=== PATIENT | female | born 1950 | race Caucasian/White ===

== ENCOUNTER → 2017-12-23 | Outpatient (CLI) | payer MEDICARE ==
--- NOTE | 2017-12-23 16:14 | CONS ---
CONSULTATION DATE OF SERVICE: 12/23/2017 67-year-old lady who has been evaluated in [facility] for obstructive sleep apnea- hypopnea syndrome. HISTORY OF PRESENT ILLNESS/SLEEP-WAKE EVALUATION: Patient has been diagnosed with obstructive sleep apnea-hypopnea syndrome in 2016 in [facility] in [place]. At that time, sleep study showed apnea-hypopnea index 66.8, which was on control with CPAP at 10-11 cm of water. Since that time, patient is on treatment with CPAP and she is using CPAP equipment every night for the whole night without problems. No snoring with CPAP. Her sleep schedule usually from 10:30 p.m. until 7:00 a.m. No problems with falling asleep, although he has a TV set in bedroom. She still wakes up from sleep about 3 times with nocturia. In the morning, sometimes she wakes up tired. Sometimes problems with memory. [place] Sleepiness Scale is borderline 10. I checked the patient's CPAP unit. CPAP pressure is 11 cm of water. Usage is 100% of the time more than 4 hours. Average usage is 7.6 hours. Leak is 12 L/minute, which is borderline. Apnea-hypopnea index reading from the machine only 0.5, which is perfect. PAST MEDICAL HISTORY: Positive for diabetes mellitus. PAST SURGICAL HISTORY: Surgery for ganglion cyst on both hands, tubal ligation, total hysterectomy, bladder suspension, rectus sella repair, surgery for hiatal hernia and scleral therapy for some venous problems of the legs. MEDICATIONS: Metformin, atorvastatin, fish oil, calcium, niacin. SOCIAL HISTORY: Positive for smoking for a long time ago for about 10 years, half pack a day, quit about 30 years ago. Alcohol consumption rarely. FAMILY HISTORY: Hypertension, heart problems, hyperlipidemia, stroke, arthritis, lung problems, emphysema, sleep apnea, pneumonia, headaches, cancer, insomnia, acid reflux, ulcers, diabetes thyroid problem, during sleep, restless legs, sleepiness. REVIEW OF SYSTEMS: Basically negative. Occasional daytime sleepiness. PHYSICAL EXAM: GENERAL lady without distress. VITAL SIGNS BP 114/83, HR 78, RR 16, height 5 feet 3-1/2, weight 220, BMI 38.3, temperature 98.9, oxygen saturation room air 93%. HEENT PERRLA, EOMI, evaluation of oropharynx showed extremely low position of soft palate. Neck 15 inches in circumference. NECK Supple, no JVD. Thyroid is not palpable. LUNGS Clear to percussion and to auscultation. Good air exchange. No wheezing or rhonchi. HEART S1, S2 regular. No murmurs, gallops, or rubs. ABDOMEN Obese. Soft and nontender. Bowel sounds are present. No organomegaly appreciated. EXTREMITIES No clubbing or cyanosis. TOBACCO CONDITIONER Awake, alert, and oriented X3. Cranial nerves 2 to 7 intact. There is no fasciculation or atrophy. noted. No focal deficits observed. IMPRESSION: 1. Severe obstructive sleep apnea-hypopnea syndrome; apnea-hypopnea index 66.8 by results of sleep study in different institution on control with CPAP at 11 cm of water. Patient demonstrated 100% compliance with treatment benefitting from treatment. 2. Obesity. 3. Diabetes mellitus. 4. Status post bilateral surgery for ganglion cyst of the hands. 5. Status post breast resection for benign tumor. 6. Status post tubal ligation. 7. Status post total hysterectomy. 8. Status post bladder suspension. 9. Status post rectus sella treatment. 10.Acid reflux. 11.Status post surgical treatment of hiatal hernia. 12.Status post surgery for varicose veins of the lower legs. PLAN: 1. Patient will continue to use CPAP equipment every night for the whole night with the same pressure of 11 cm of water. 2. Prescription for all necessary CPAP supplies including heated tube, full-face mask, filters, humidifier. 3. Losing weight. 4. Sleep hygiene with regular time in bed for at least 8 hours. 5. No driving if feeling any sleepiness. Thank you very much for referring this patient for consultation. Sincerely, Magan Ramos MD, PhD, FAASM Diplomat of [employer] Campaign Specialist of [facility] [place] MMODL / IJN: [id number] /
== END | disposition home or self-care (01) ==
LOC: SLEEP 13:15
PROVIDERS: ATTEND Internal Medicine
DX: G47.33 Obstructive sleep apnea (adult) (pediatric) (principal); E11.9 Type 2 diabetes mellitus without complications; K21.9 Gastro-esophageal reflux disease without esophagitis; E66.9 Obesity, unspecified; Z68.38 Body mass index [BMI] 38.0-38.9, adult; Z87.891 Personal history of nicotine dependence; Z79.84 Long term (current) use of oral hypoglycemic drugs; Z99.89 Dependence on other enabling machines and devices; Z98.890 Other specified postprocedural states; Z90.710 Acquired absence of both cervix and uterus
CPT/HCPCS: 99211

== ENCOUNTER → 2018-02-04 | Outpatient (CLI) | payer MEDICARE ==
--- NOTE | 2018-02-05 15:09 | MM ---
Reason for exam: screening (asymptomatic). Last mammogram was performed 1 year and 2 months ago. History: Patient is postmenopausal. Family history of breast cancer in maternal aunt and breast cancer in maternal cousin. Benign excisional biopsy of the right breast, 1987. Physical Findings: A clinical breast exam by your physician is recommended on an annual basis and results should be correlated with mammographic findings. MG 3D Screening Mammo W/Cad Bilateral CC and MLO view(s) were taken. Prior study comparison: December 17, 2016, mammogram. February 19, 2016, mammogram. Focal asymmetry right upper outer quadrant, stable. No significant changes when compared with prior studies. ASSESSMENT: Benign, BI-RAD 2 RECOMMENDATION: Routine screening mammogram of both breasts in 1 year.
== END | disposition home or self-care (01) ==
LOC: RADMAMWWP 08:48
PROVIDERS: ATTEND Family Medicine
DX: Z12.31 Encounter for screening mammogram for malignant neoplasm of breast (principal)
CPT/HCPCS: 77063; 77067

== ENCOUNTER → 2018-10-21 | Outpatient (CLI) | payer MEDICARE ==
--- NOTE | 2018-10-21 14:27 | XR ---
EXAMINATION TYPE: XR cervical spine comp DATE OF EXAM: 10/21/2018 COMPARISON: None HISTORY: Degenerative joint disease, spinal canal stenosis TECHNIQUE: 5 view cervical spine supplemented with a transthoracic swimmer's view FINDINGS: Odontoid is limited due to overlying occiput. Vertebral body alignment is normal. There is disc space narrowing present C5-6 C6-7. Prevertebral space is normal. Posterior spinal lamellar line is intact. There is mild bilateral foraminal stenosis at C5-6. Remaining foramen are patent. IMPRESSION: 1. Mild foraminal narrowing and degenerative disc changes C5-6. 2. Some mild disc space narrowing is also present C6-7.
--- NOTE | 2018-10-21 14:28 | XR ---
EXAMINATION TYPE: XR lumbosacral spine min 4V DATE OF EXAM: 10/21/2018 COMPARISON: None HISTORY: Degenerative joint disease, spinal canal stenosis TECHNIQUE: Five-view lumbar spine FINDINGS: There 5 lumbar-type vertebral bodies. Pedicles are intact. Minimal rotoscoliosis within the lumbar spine. Facet degenerative changes are present bilaterally greater in the L3-4 through L5-S1 l evels. Disc space narrowing is present. Vertebral body heights are preserved. Schmorl's node may be p resent in the superior L2 vertebral level. No posterior wall displacement is evident. IMPRESSION: 1. No acute osseous abnormality. 2. Degenerative facet changes lower lumbar spine
== END | disposition home or self-care (01) ==
LOC: RADXRMAIN 13:48
PROVIDERS: ATTEND Chiropractor
DX: M99.71 Connective tissue and disc stenosis of intervertebral foramina of cervical region (principal); M48.02 Spinal stenosis, cervical region; M47.812 Spondylosis without myelopathy or radiculopathy, cervical region; M47.816 Spondylosis without myelopathy or radiculopathy, lumbar region
CPT/HCPCS: 72050; 72110

== ENCOUNTER → 2018-11-30 | Outpatient (CLI) | payer MEDICARE, OTHER ==
--- NOTE | 2018-11-30 13:44 | MR ---
EXAMINATION TYPE: MR brain and iac wo/w con DATE OF EXAM: 11/30/2018 COMPARISON: NONE HISTORY: Tinnitus / Rt Hearing loss TECHNIQUE: Multiplanar, multisequence images of the brain and brainstem is performed without and with IV contras t, utilizing 9 mL intravenous Gadavist . FINDINGS: Diffusion weighted images demonstrate no evidence of a recent infarct or other diffusion ab normality. There is no extra-axial fluid collection. Few scattered foci of T2/FLAIR hyperintensity a re seen within the periventricular and subcortical white matter with the largest in the left centrum semiovale of the frontal lobe measuring 0.7 x 0.4 cm. The ventricular system and cisternal spaces are normal in size and appearance. The brain volume is age appropriate. Incidentally noted 4 mm pineal gland cyst. Remaining midline structures demonstrate normal morphology . The craniocervical junction appears within normal limits. Post contrast images demonstrate no abn ormal enhancement. The dural venous sinuses appear patent. Mild mucosal thickening is seen within the ethmoid sinuses. The remaining visualized sinuses are clear and the globes are intact. There is no evidence of cerebellar pontine angle mass nor aneurysmal dilatation of the vertebral basi lar system. The 7th and 8th cranial nerves demonstrate no abnormal enhancement. No evidence of acoust ic schwannoma. IMPRESSION: 1. No evidence of abnormal enhancement of the 7th or 8th cranial nerves, no cerebellar pontine angle mass, and no evidence of acoustic for melanoma. No middle ear cavity fluid and no evidence of mastoid itis in this patient with right-sided hearing loss. 2. Mild burden nonspecific white matter change, most commonly on the basis of chronic microangiopathy . 3. No evidence of acute territorial infarct, midline shift or mass effect. No abnormal intracranial e nhancement.
== END | disposition home or self-care (01) ==
LOC: RADMRIMAIN 10:28
PROVIDERS: ATTEND Nurse Practitioner Family
DX: I73.9 Peripheral vascular disease, unspecified (principal); R90.82 White matter disease, unspecified; H91.90 Unspecified hearing loss, unspecified ear
CPT/HCPCS: 70553; A9585

== ENCOUNTER → 2018-12-09 | Outpatient (CLI) | payer MEDICARE ==
--- NOTE | 2018-12-09 11:51 | SFUN ---
SLEEP CENTER FOLLOW UP NOTE DATE OF SERVICE: 12/09/2018 This 68-year-old lady had been followed in the sleep center for treatment of severe obstructive sleep apnea-hypopnea syndrome. Patient continued to use her CPAP equipment every night for the whole night without significant problems related to mask fitting, pressure or humidification. She is receiving her CPAP supplies on time. No sleepiness during the day. [place] Sleepiness Scale today is 5. I checked her CPAP unit. CPAP pressure is 11 cm of water. Usage is every night. For the one year, she used it 363 nights out of 365 nights and 356 nights more than 4 hours with average usage of 7.5 hours per night. Apnea-hypopnea index for the whole year only 0.5, which is absolutely perfect. Leak for the whole year 11 L/minute, which is acceptable range. MEDICATIONS: Metformin, atorvastatin. PHYSICAL EXAMINATION: During physical exam, patient in no distress. VITAL SIGNS: BP 152/82, HR 96, RR 16, height 5 feet 3 inches, weight 214, body mass index 37.9, temperature 98.1, oxygen saturation in room air 96%. HEENT: PERRLA, EOMI. Oropharynx extremely low position of soft palate. Mallampati 4. NECK: Supple, no JVD. Thyroid is not palpable. LUNGS: Clear to percussion and to auscultation. Good air exchange. No wheezing or rhonchi. HEART: S1, S2 regular. No murmurs, gallops, or rubs. ABDOMEN: Slightly obese. EXTREMITIES: No clubbing or cyanosis. STRAIGHTEDGE MAN: Awake, alert, and oriented X3. Cranial nerves 2 to 7 intact. There is no fasciculation or atrophy. noted. No focal deficits observed. IMPRESSION: 1. Severe obstructive sleep apnea-hypopnea syndrome on full control with CPAP at 11 cm of water. Patient demonstrated practically 100% compliance with treatment benefitting from treatment. 2. Diabetes mellitus. 3. Obesity. Weight is 6 pounds down comparing with weight one year ago. 4. Status post bilateral surgery for ganglion cyst of the hands. 5. Status post breast resection for benign tumor. 6. Status post tubal ligation. 7. Status post total hysterectomy. 8. Status post bladder suspension. 9. Status post surgical treatment for hiatal hernia. 10.Acid reflux. 11.Status post surgery for varicose veins of the lower legs. 12.Status post surgery for esophageal sphincter for prevention of acid reflux. PLAN: 1. Patient will continue to use CPAP equipment every night for the whole night. 2. Prescription for all necessary CPAP supplies. 3. Continue losing weight. 4. Sleep hygiene with regular time in bed for 8 hours. 5. Precautions related to driving. No driving if feeling any sleepiness. Thank you very much for allowing me to participate in management of your patient. Sincerely, Magan Ramos MD, PhD, FAASM Diplomat of [employer] Thread Grinder Tool of [facility] [place] MMODL / IJN: [id number] /
== END | disposition home or self-care (01) ==
LOC: SLEEP 10:20
PROVIDERS: ATTEND Internal Medicine
DX: G47.33 Obstructive sleep apnea (adult) (pediatric) (principal); E11.9 Type 2 diabetes mellitus without complications; E66.9 Obesity, unspecified; K21.9 Gastro-esophageal reflux disease without esophagitis; Z68.37 Body mass index [BMI] 37.0-37.9, adult; Z98.51 Tubal ligation status; Z90.710 Acquired absence of both cervix and uterus; Z98.890 Other specified postprocedural states; Z99.89 Dependence on other enabling machines and devices; Z79.84 Long term (current) use of oral hypoglycemic drugs; Z79.899 Other long term (current) drug therapy

== ENCOUNTER → 2019-02-08 | Outpatient (CLI) | payer MEDICARE, OTHER ==
--- NOTE | 2019-02-10 10:03 | MM ---
Reason for exam: screening (asymptomatic). Last mammogram was performed 1 year ago. History: Patient is postmenopausal. Family history of breast cancer in maternal aunt and breast cancer in maternal cousin. Benign excisional biopsy of the right breast, 1987. Physical Findings: A clinical breast exam by your physician is recommended on an annual basis and results should be correlated with mammographic findings. MG 3D Screening Mammo W/Cad Bilateral CC and MLO view(s) were taken. Prior study comparison: February 04, 2018, bilateral MG 3d screening mammo w/cad. December 17, 2016, mammogram. The breast tissue is heterogeneously dense. This may lower the sensitivity of mammography. There is no discrete abnormality. No significant changes when compared with prior studies. ASSESSMENT: Negative, BI-RAD 1 RECOMMENDATION: Routine screening mammogram of both breasts in 1 year.
== END | disposition home or self-care (01) ==
LOC: RADMAMWWP 09:18
PROVIDERS: ATTEND Family Medicine
DX: Z12.31 Encounter for screening mammogram for malignant neoplasm of breast (principal)
CPT/HCPCS: 77063; 77067

== ENCOUNTER → 2019-10-26 | Outpatient (CLI) | payer MEDICARE, OTHER ==
--- NOTE | 2019-10-26 15:16 | MR ---
EXAMINATION TYPE: MR knee LT wo con DATE OF EXAM: 10/26/2019 COMPARISON: NONE HISTORY: Left knee pain with locking and swelling for 4 weeks after fall injury per patient. TECHNIQUE: Multiplanar, multisequence images of the knee is performed without IV contrast. FINDINGS: MEDIAL MENISCUS: Anterior horn is intact without tear. Posterior horn is truncated with abnormal incr eased signal superior aspect extending to articular surface. LATERAL MENISCUS: Anterior and posterior horns are intact without tear. CRUCIATE LIGAMENTS: The anterior and posterior cruciate ligaments are intact and unremarkable. COLLATERAL LIGAMENTS: The medial collateral ligament and lateral collateral ligament complex are inta ct. Mild fluid signal surrounds medial collateral ligament fibers EXTENSOR MECHANISM: Visualized quadriceps and patellar tendons are intact. EFFUSION: Small to tiny suprapatellar joint effusion. POPLITEAL CYST: Tiny popliteal/garner cyst. TRICOMPARTMENT SPACES: Moderate tricompartment joint space loss with mild spurring, relative sparing of lateral tibiofemoral compartment. CARTILAGE: Chondromalacia patella with thinning of articular cartilage along the posterior patellar p ole. Less prominent cartilaginous loss medial tibial femoral compartment. BONE MARROW SIGNAL: Extensive heterogeneous diminished T1 and increased T2 signal involving the dista l femoral condyle extending into the metaphysis with curvilinear low T1 signal at the subchondral mick face. OTHER: No additional significant abnormality is appreciated. IMPRESSION: 1. Subchondral injury with significant adjacent osseous contusion and/or bone marrow edema involving the distal femoral meta-epiphysis. 2. Full-thickness tear posterior horn medial meniscus. 3. Mild MCL sprain injury. 4. Moderate tricompartment degenerative changes greatest fell from a compartment as detailed above. 5. Small to tiny suprapatellar joint effusion. 6. Tiny popliteal cyst. 7. Likely tearing of the medial retinaculum without patellar dislocation.
--- NOTE | 2019-10-26 21:54 | MR ---
EXAMINATION TYPE: MR hip LT wo con DATE OF EXAM: 10/26/2019 COMPARISON: None. HISTORY: Left hip pain x 4 weeks Standard multiplanar, multisequence MRI departmental protocol Multiplanar, multisequence images of the pelvis focusing on left hip were acquired. FINDINGS: There is sxbr-nl-[id number] axial joint space loss in both hips with mild acetabular spurring . Findings symmetric in appearance. Small to tiny symmetric bilateral hip joint effusions are present . Femoral head shapes are maintained bilaterally. No suspicious edema is seen. No serpiginous low T1 signal identified to suggest avascular necrosis. No suspicious groin hernia or adenopathy. Muscle bulk bilateral thigh symmetric and felt within jaime l limits. No suspicious increased fluid signal of the greater trochanters bilaterally. Bladder poorly distended. Uterus surgically absent or markedly atrophic. No suspicious bowel dilatati on. No concerning pelvic fluid collection. IMPRESSION: [id number] degenerative changes in the left hip as detailed above
== END | disposition home or self-care (01) ==
LOC: RADMRIMAIN 13:57
PROVIDERS: ATTEND Family Medicine
DX: S83.242A Other tear of medial meniscus, current injury, left knee, initial encounter (principal); M17.12 Unilateral primary osteoarthritis, left knee; S83.8X2A Sprain of other specified parts of left knee, initial encounter; M25.462 Effusion, left knee; M71.22 Synovial cyst of popliteal space [Baker], left knee; M25.552 Pain in left hip; M16.12 Unilateral primary osteoarthritis, left hip

== ENCOUNTER → 2019-11-28 | Outpatient (CLI) | payer MEDICARE, OTHER ==
[2019-11-28 15:26] LABS: Basophils # (A) 0.1 k/uL (0-0.2); Basophils % (A) 1 %; Eosinophils # (A) 0.2 k/uL (0-0.7); Eosinophils % (A) 2 %; HCT 45.1 % (34.0-46.0); HGB 14.8 gm/dL (11.4-16.0); Lymphocytes # (A) 4.7 k/uL (1.0-4.8); Lymphocytes % (A) 52 %; MCH 31.7 pg (25.0-35.0); MCHC 32.9 g/dL (31.0-37.0); MCV 96.4 fL (80.0-100.0); Mean Platelet Volume 8.6; Monocytes # (A) 0.4 k/uL (0-1.0); Monocytes % (A) 5 %; Neutrophils # (A) 3.5 k/uL (1.3-7.7); Neutrophils % (A) 38 %; Platelet Count 250 k/uL (150-450); RBC 4.68 m/uL (3.80-5.40); RDW 12.6 % (11.5-15.5); WBC 9.1 k/uL (3.8-10.6)
[2019-11-28 16:09] LABS: Potassium 4.1 mmol/L (3.5-5.1)
== END | disposition home or self-care (01) ==
LOC: LABPAT 13:27
PROVIDERS: ATTEND Orthopaedic Surgery
DX: Z01.818 Encounter for other preprocedural examination (principal); M23.92 Unspecified internal derangement of left knee
CPT/HCPCS: 36415; 80051; 85025; 93005

== ENCOUNTER 2019-12-07 08:36 | Day surgery (SDC) | payer MEDICARE, OTHER ==
[2019-12-05 08:48] VITALS: BMI 31.9
--- NOTE | 2019-12-06 18:02 | HP ---
HISTORY AND PHYSICAL DATE OF SURGERY: 12/07/2019 Adelina Gordillo is a 69-year-old patient seen with progressive left knee pain. We discussed options for treatment. She elected to proceed with arthroscopy. Consent was obtained. PAST MEDICAL HISTORY: Hyperlipidemia, onn-kbmlyoe-grpmepkbk diabetes. PAST SURGICAL HISTORY: Total abdominal hysterectomy, cataract surgery. DAILY MEDICATIONS: Atorvastatin, Januvia, metformin. ALLERGIES: NONE. SOCIAL HISTORY: She denies current tobacco use. PHYSICAL EVALUATION OF THE LEFT KNEE: Her range of motion is negative 2/3 to 120. Mild effusion. Tenderness medial joint line. Positive medial Jessie's. Ligaments are stable. Hip rotation is without pain. Her distal neurovascular exam is intact. RADIOGRAPHS: Left knee radiographs revealed osteoarthritic changes, mild. Left knee MRI: Medial meniscal tear. IMPRESSION: 1. Internal derangement of the left knee with medial meniscal tear. 2. Hyperlipidemia. 3. Zty-zoinisf-tpdaxehlb diabetes. PLAN: Left knee arthroscopy with partial meniscectomy, partial synovectomy and debridement. MMODL / IJN: [id number] /
[~2019-12-07 08:36] MED LIST: DEXAMETHASONE SOD PHOSPHATE 10 MG/ML 1 ML VIAL IV ONE; HYDROmorphone 0.5 MG/0.5 ML SYRINGE IVP PRN; LACTATED RINGERS 1,000 ML IV SCH; MIDAZOLAM 2 MG/2 ML VIAL IV PRN; ONDANSETRON 4 MG/2 ML VIAL IVP ONE
[2019-12-07] MEDS ORDERED: ONDANSETRON 4 MG/2 ML VIAL ONE (08:58)
[2019-12-07 09:24] LABS: Glucose,Whole Blood 182 mg/dL (75-99)
[2019-12-07] MEDS ORDERED: MIDAZOLAM 2 MG/2 ML VIAL ONE (09:58)
[2019-12-07] MEDS ORDERED: fentaNYL (PF) 50 MCG/ML 2 ML AMP ONE (09:58)
[2019-12-07] MEDS ORDERED: LIDOCAINE 1% INJ 10MG/ML (20 ML MDV) ONE (09:58)
[2019-12-07] MEDS ORDERED: SUCCINYLCHOLINE CHLORIDE 100 MG/5 ML SYR IV ONE (09:58)
[2019-12-07] MEDS ORDERED: PROPOFOL 10 MG/ML 20 ML VIAL IV ONE (09:58)
[2019-12-07] MEDS ORDERED: BUPIVACAINE (PF) 0.25% 30 ML VIAL SQ ONE (10:22)
--- NOTE | 2019-12-07 11:00 | P.OP ---
Date of Procedure: 12/07/19 Preoperative Diagnosis: Internal derangement left knee Postoperative Diagnosis: 1. Tear medial meniscus left knee 2. Grade 2/3 chondromalacia medial femoral condyle left knee 3. Grade 2/3 chondromalacia patella left knee 4. Medial plica left knee 5. Reactive synovitis medial, lateral and suprapatellar compartments left knee Procedure(s) Performed: 1. Arthroscopic partial medial meniscectomy left knee 2. Arthroscopic chondroplasty medial femoral condyle left knee 3. Arthroscopic chondroplasty patella left knee 4. Arthroscopic resection medial plica left knee 5. Arthroscopic partial synovectomy medial, lateral and suprapatellar compartments left knee Anesthesia: NINAA, local Surgeon: Jourdan Orosco Estimated Blood Loss (ml): 8 Pathology: none sent Condition: stable Disposition: PACU Indications for Procedure: 69-year-old patient seen with progressive left knee pain. After having treatment options discussed, she elected to proceed with arthroscopy. Operative Findings: See description of procedure Description of Procedure: Patient was taken to the operative suite. Patient underwent a general anesthetic by the department of anesthesia. Patient was given preoperative antibiotics. The left lower extremity was placed in a well-padded arthroscopic leg peralta. The left leg was prepped and draped in the normal sterile orthopedic fashion. A lateral parapatellar and suprapatellar incision was made. Trochars were inserted. Arthroscopy was initiated. Suprapatellar pouch revealed diffuse thick reactive synovitis. The patellofemoral joint appeared to articulate congruently. There was grade 2/3 chondromalacia with some diffuse osteochondral flap tears. The scope was guided into the medial gutter. No loose bodies or plica were identified. The scope was then guided into the medial compartment. A medial parapatellar incision was made. Trocar inserted followed by probe. There was a complex tear posterior horn medial meniscus. There were grade 2/3 chondromalacia changes of the medial femoral condyle with diffuse osteochondral flap tears. There were grade 2/3 chondromalacia changes of the medial tibial plateau. There was thick reactive synovitis anteriorly. I performed a partial medial meniscectomy. I performed a chondroplasty of the medial femoral condyle. I performed a partial synovectomy. The residual meniscus was probed and found to be stable. The residual osteochondral surface was stable. There was good decompression of the synovitis. Scope and probe were then guided into the intercondylar notch. Cruciates were identified, probed and found to be stable. The scope and probe were then guided into lateral compartment. Lateral meniscus was probed and found to be stable since very mild superficial fraying. There were grade 1 chondromalacia changes lateral compartment. There were no osteochondral tears present. There was some reactive synovitis anteriorly. I introduced a motorized shaver and performed a partial synovectomy. There was good decompression of the synovitis. The scope was in guided back into the suprapatellar compartment. I introduced a motorized shaver into the super patellar compartment. I debrided some piecemeal fragments of meniscus I encountered. I performed a chondroplasty of the patella getting down to stable osteochondral tissue. I performed a partial synovectomy decompressing the reactive synovitis. The shaver was removed. There appeared be good decompression of synovitis. The residual osteochondral surface of patella. Stable. I took one more look around the entire knee, no residual debris. Instruments were now removed from the joint. The joint was infiltrated with .25% Marcaine. Steri-Strips were applied to the portal sites. Sterile dressings were applied. The patient was placed into a NATALIA hose. No tourniquet was utilized. The patient was awakened, transferred to a bed and taken to recovery stable satisfactory condition.
[2019-12-07 11:05] VITALS: TEMP 97.2
[2019-12-07] MEDS ORDERED: LACTATED RINGERS 1,000 ML IV ONE (11:18)
[2019-12-07 11:32] LABS: Glucose,Whole Blood 222 mg/dL (75-99)
[2019-12-07 12:12] VITALS: RESP 18
[2019-12-07 12:44] VITALS: BP 128/78; PULSE 90
== END 2019-12-07 12:45 | disposition home or self-care (01) ==
LOC: OR 08:36
PROVIDERS: ATTEND Orthopaedic Surgery
DX: S83.242A Other tear of medial meniscus, current injury, left knee, initial encounter (principal); X58.XXXA Exposure to other specified factors, initial encounter; M67.52 Plica syndrome, left knee; M22.42 Chondromalacia patellae, left knee; M65.862 Other synovitis and tenosynovitis, left lower leg; E78.5 Hyperlipidemia, unspecified; E11.9 Type 2 diabetes mellitus without complications; G47.33 Obstructive sleep apnea (adult) (pediatric); K21.9 Gastro-esophageal reflux disease without esophagitis; Z79.84 Long term (current) use of oral hypoglycemic drugs; Z79.899 Other long term (current) drug therapy
CPT/HCPCS: 29881; J2250; J1100; J0690; J2405; J2001; J3010; J0330; J2704; J1170

== ENCOUNTER → 2019-12-15 | Outpatient (CLI) | payer MEDICARE ==
--- NOTE | 2019-12-15 11:55 | SFUN ---
SLEEP CENTER FOLLOW UP NOTE DATE OF SERVICE: 12/15/2019 A 69-year-old lady who has been followed in the Sleep Center for treatment of obstructive sleep apnea-hypopnea syndrome. Patient successfully continues to use her CPAP equipment every night for the whole night. No snoring with the machine. [place] Sleepiness Scale today is 8. I checked her CPAP unit, CPAP pressure is 11 cm of water. Usage is 29/30 nights more than 4 hours with average usage 7.5 hours per night. Leak 8 L/minute which is acceptable range. Apnea-hypopnea index is only 1.1, which is normal. Patient using Air Wyatt F10 full-face mask. MEDICATIONS: Metformin, atorvastatin, Januvia. PHYSICAL EXAM: Patient in no distress. BP 152/73, HR 92, RR 15, height 5, 3, weight 203 pounds. Body mass index 35.9, temperature 98.2, oxygen saturation from 96%. OROPHARYNX: Extremely low position of soft palate. Mallampati 4. ABDOMEN: Slightly obese. NECK: Supple, no JVD. Thyroid is not palpable. LUNGS: Clear to percussion and to auscultation. Good air exchange. No wheezing or rhonchi. HEART: S1, S2 regular. No murmurs, gallops, or rubs. EXTREMITIES: No clubbing or cyanosis. CLOTHES SEPARATOR: Awake, alert, and oriented X3. Cranial nerves 2 to 7 intact. There is no fasciculation or atrophy. noted. No focal deficits observed. IMPRESSION: 1. Severe obstructive sleep apnea-hypopnea syndrome. Patient demonstrated great compliance with treatment, benefitting from treatment. 2. Increasing blood pressure today in the office. 3. Obesity, patient lost about 11 pounds since previous visit. 4. Status post recent left knee arthroscopic surgery for meniscus problems. 5. Diabetes mellitus. 6. Status post bilateral surgery for ganglion cyst of the . 7. Status post breast resection for benign tumor. 8. Status post tubal ligation. 9. Status post total hysterectomy. 10.Status post bladder suspension. 11.Status post surgical treatment for hiatal hernia. 12.Hyperlipidemia. 13.Acid reflux. 14.Status post surgical treatment of varicose veins of lower legs. 15.Status post surgery on oropharyngeal sphincter for prevention of acid reflux. PLAN: 1. Patient will continue to use PAP equipment every night for the whole night. 2. Sleep hygiene with regular time in bed for at least 7-1/2 to 8 hours. 3. Precautions related to driving. No driving if feeling sleepiness. 4. I will maintain all necessary prescription for PAP supplies including mask, tube, filters. 5. Watching weight. 6. No driving if feeling sleepiness. 7. Followup visit in 6 months or earlier if patient has any problems. Thank you very much for allowing me to participate in the management of your patient. Sincerely, Magan Ramos MD, PhD, FAASM Diplomat of [employer] Percussion Instrument Tuner of [facility] [place] MMODL / IJN: [id number] /
== END | disposition home or self-care (01) ==
LOC: SLEEP 10:20
PROVIDERS: ATTEND Internal Medicine
DX: G47.33 Obstructive sleep apnea (adult) (pediatric) (principal); E66.9 Obesity, unspecified; E11.9 Type 2 diabetes mellitus without complications; E78.5 Hyperlipidemia, unspecified; K21.9 Gastro-esophageal reflux disease without esophagitis; Z98.51 Tubal ligation status; Z90.710 Acquired absence of both cervix and uterus; Z99.89 Dependence on other enabling machines and devices; Z98.890 Other specified postprocedural states

== ENCOUNTER → 2020-03-28 | Outpatient (CLI) | payer MEDICARE, OTHER ==
--- NOTE | 2020-04-02 09:09 | MM ---
Reason for exam: screening (asymptomatic). Last mammogram was performed 1 year and 2 months ago. History: Patient is postmenopausal and has history of other cancer at age 69. Family history of breast cancer in maternal aunt and breast cancer in maternal cousin. Benign excisional biopsy of the right breast, 1987. Took hormonal contraceptives for 1 year. Physical Findings: A clinical breast exam by your physician is recommended on an annual basis and results should be correlated with mammographic findings. MG 3D Screening Mammo W/Cad Bilateral CC and MLO view(s) were taken. Prior study comparison: February 08, 2019, bilateral MG 3d screening mammo w/cad. February 04, 2018, bilateral MG 3d screening mammo w/cad. There are scattered fibroglandular densities. Finding: There is a 7 mm high density, circumscribed oval mass located 7 cm from the nipple in the 8 o'clock position of the right breast. New finding since February 08, 2019 and February 04, 2018. ASSESSMENT: Incomplete: need additional imaging evaluation, BI-RAD 0 RECOMMENDATION: Ultrasound of the right breast. [facility] will attempt to contact patient to return for ultrasound.
== END | disposition home or self-care (01) ==
LOC: RADMAMWWP 09:30
PROVIDERS: ATTEND Family Medicine
DX: Z12.31 Encounter for screening mammogram for malignant neoplasm of breast (principal)
CPT/HCPCS: 77063; 77067

== ENCOUNTER → 2020-04-03 | Outpatient (CLI) | payer MEDICARE, OTHER ==
--- NOTE | 2020-04-03 11:40 | USB ---
Reason for exam: additional evaluation requested from abnormal screening. History: Patient is postmenopausal and has history of other cancer at age 69. Family history of breast cancer in maternal aunt at age 40 and breast cancer in maternal cousin at age 50. Benign excisional biopsy of the right breast, 1987. Took hormonal contraceptives for 1 year. Physical Findings: Nurse did not find any significant physical abnormalities on exam. US Breast Workup Limited RT Right limited breast ultrasound including focal area of concern, retroareolar and axilla demonstrates a 0.3 x 0.2cm lesion too small to characterize at 8 o'clock. No corresponding ultrasound abnormality to mammogram. These results were verbally communicated with the patient and result sheet given to the patient on 04/03/20. ASSESSMENT: Benign, BI-RAD 2 RECOMMENDATION: Stereotactic core biopsy of the right breast. (right breast mammogram density) Called Dr. Polk's office with mammographic findings and has scheduled an appointment for the patient for 05/03/20 at 12:[address] Mullen. Biopsy scheduled for 04/23/20 at 8:00. PRELIMINARY REPORT CALLED AND FAXED TO DR. MULLEN ON 04/03/20.
== END | disposition home or self-care (01) ==
LOC: RADUSWWP 09:34
PROVIDERS: ATTEND Family Medicine
DX: R92.8 Other abnormal and inconclusive findings on diagnostic imaging of breast (principal)

== ENCOUNTER → 2020-04-23 | Day surgery (SDC) | payer MEDICARE, OTHER ==
[2020-04-23 07:14] VITALS: BP 115/82; PULSE 85; RESP 16; TEMP 99
--- NOTE | 2020-04-23 08:50 | MM ---
EXAMINATION TYPE: MG discontinued stereo core RT DATE OF EXAM: 04/23/2020 COMPARISON: 03/28/2020, 02/08/2019, and 02/04/2018. Ultrasound 04/03/2020 CLINICAL HISTORY: 69-year-old female referred for stereotactic core needle biopsy of right breast asy mmetric density TECHNIQUE: Initial mammographic workup of the lateral right breast asymmetric density with spot 3-D C C, 3-D CC rolled medial, and 3-D ML views. FINDINGS: The intended biopsy target, lateral asymmetric density on the right CC view does not clearly persist on additional views. No correlate is identified on the initial 3-D MLO or the current 3-D lateral vie ws. Six-month follow-up is recommended and biopsy is being deferred at this time. Findings and impres salvador are discussed with the patient. IMPRESSION: 1. Biopsy deferred as additional mammographic workup does not show a clear persisting targeted for bi opsy. 2. BI-RADS 3, probably benign RECOMMENDATION: 1. Six-month follow-up diagnostic right breast mammogram. 2. Six-month follow-up right breast ultrasound lateral half from 6:00 to 12:00. 3. Patient should continue monthly self breast exams. 4. This exam should not preclude additional follow-up of suspicious palpable abnormalities.
== END ==
LOC: RADMAMWWP 07:01
PROVIDERS: ATTEND Surgery
DX: R92.8 Other abnormal and inconclusive findings on diagnostic imaging of breast (principal); Z53.9 Procedure and treatment not carried out, unspecified reason; Z88.8 Allergy status to other drugs, medicaments and biological substances

== ENCOUNTER → 2020-06-14 | Outpatient (CLI) | payer MEDICARE ==
--- NOTE | 2020-06-14 16:23 | SFUN ---
SLEEP CENTER FOLLOW UP NOTE DATE OF SERVICE: 06/14/2020 This is a 69-year-old lady who has been followed in Sleep Center for treatment of obstructive sleep apnea-hypopnea syndrome. The patient continues to use her CPAP equipment every night. No snoring with the machine. No problems related to mask fitting, pressure or humidification. [place] Sleepiness Scale today is 8, which is normal. I checked her CPAP unit. Pressure is 11 cm of water. Usage is 30/30 nights which showed 100% compliance. Average usage 8.6 hours per night. The patient is using it every night more than 4 hours. Leak is 5 L/minute, which is normal. Apnea-hypopnea index is only 0.4, which is absolutely perfect. MEDICATIONS: Metformin 1000 mg once a day, atorvastatin 40 mg once a day, Januvia 100 mg once a day. PHYSICAL EXAMINATION: GENERAL: A pleasant patient in no distress. VITAL SIGNS: BP 135/73, HR 87, RR 12, height 5 feet 4 inches, weight 205.8, temperature 97.1. Oxygen saturation at room air 95%. HEENT: PERRLA, EOMI. Evaluation of oropharynx showed tongue protrudes midline. Extremely low position of soft palate. Mallampati IV. NECK: Supple. No JVD. Thyroid is not palpable. LUNGS: Clear to percussion and to auscultation. Good air exchange. No wheezing or rhonchi. HEART: S1, S2 regular. No murmurs, gallops or rubs. ABDOMEN: Obese. EXTREMITIES: No clubbing or cyanosis. SHEET METAL LAYOUT WORKER: Awake, alert, and oriented X3. Cranial nerves 2 to 7 intact. There is no fasciculation or atrophy. noted. No focal deficits observed. IMPRESSION: 1. Severe obstructive sleep apnea-hypopnea syndrome. Patient demonstrated 100% compliance with treatment, benefitting from treatment. Normal respiration on CPAP. 2. Obesity. 3. Status post left knee arthroscopic surgery for meniscus problems. 4. Diabetes mellitus. 5. Status post bilateral surgery for ganglion cyst. 6. Status post breast resection for benign tumor. 7. Status post tubal ligation. 8. Status post total hysterectomy. 9. Status post bladder suspension. 10.Status post surgical treatment for hiatal hernia. 11.Hyperlipidemia. 12.Acid reflux. 13.Status post surgical treatment for varicose veins of the legs. 14.Status post surgery on oropharyngeal sphincter for prevention of acid reflux. PLAN: 1. Patient will continue to use PAP equipment every night for the whole night. 2. Sleep hygiene with regular time in bed for at least 7-1/2 to 8 hours. 3. Precautions related to driving. No driving if feeling sleepiness. 4. I will maintain all necessary prescription for PAP supplies including mask, tube, filters. 5. Losing weight program. 6. No driving if feeling sleepiness. 7. Follow-up visit in 6 months or earlier if patient has any problems. Thank you very much for allowing me to participate in the management of your patient. Sincerely, Magan Ramos MD, PhD, FAASM Diplomat of [place] [employer] [place] [employer] Medicine Nuisance Wildlife Control Operator of [facility] [place] MMODL / IJN: [id number] /
== END ==
LOC: SLEEP 11:52
PROVIDERS: ATTEND Internal Medicine
DX: G47.33 Obstructive sleep apnea (adult) (pediatric) (principal); E66.9 Obesity, unspecified; Z68.41 Body mass index [BMI] 40.0-44.9, adult; Z98.890 Other specified postprocedural states; E11.9 Type 2 diabetes mellitus without complications; Z98.51 Tubal ligation status; Z90.711 Acquired absence of uterus with remaining cervical stump; E78.5 Hyperlipidemia, unspecified; K21.9 Gastro-esophageal reflux disease without esophagitis; Z99.89 Dependence on other enabling machines and devices

== ENCOUNTER → 2020-11-29 | Outpatient (CLI) | payer MEDICARE, OTHER ==
--- NOTE | 2020-12-03 08:39 | MM ---
Reason for exam: follow-up at short interval from prior study. Last mammogram was performed 8 months ago. History: Patient is postmenopausal and has history of other cancer at age 69. Family history of breast cancer in maternal aunt at age 40 and breast cancer in maternal cousin at age 50. MG discontinued stereo core RT of the right breast, April 23, 2020. Benign excisional biopsy of the right breast, 1987. Took hormonal contraceptives for 1 year. Physical Findings: Nurse did not find any significant physical abnormalities on exam. MG 3D Diag Mammo W/Cad RT CC and MLO view(s) were taken of the right breast. Prior study comparison: April 03, 2020, right breast US breast workup limited RT. March 28, 2020, bilateral MG 3d screening mammo w/cad. February 08, 2019, bilateral MG 3d screening mammo w/cad. December 17, 2016, mammogram. There are scattered fibroglandular densities. Stable lateral asymmetric density. The previous questioned adjacent lateral asymmetric density is no longer seen. These results were verbally communicated with the patient and result sheet given to the patient on 11/29/20. ASSESSMENT: Incomplete: need additional imaging evaluation, BI-RAD 0 RECOMMENDATION: Ultrasound of the right breast. (as ordered)
--- NOTE | 2020-12-03 08:41 | USB ---
Reason for exam: additional evaluation requested from abnormal screening. History: Patient is postmenopausal and has history of other cancer at age 69. Family history of breast cancer in maternal aunt at age 40 and breast cancer in maternal cousin at age 50. MG discontinued stereo core RT of the right breast, April 23, 2020. Benign excisional biopsy of the right breast, 1987. Took hormonal contraceptives for 1 year. US Breast Limited RT Right limited breast ultrasound including focal area of concern, retroareolar and axilla demonstrates no cystic or solid lesion seen. Scanned 6-12 o'clock. These results were verbally communicated with the patient and result sheet given to the patient on 11/29/20. ASSESSMENT: Negative, BI-RAD 1 RECOMMENDATION: Return to routine screening mammogram schedule for both breasts. Back on schedule for March 2021.
== END | disposition home or self-care (01) ==
LOC: RADMAMWWP 14:12
PROVIDERS: ATTEND Family Medicine
DX: R92.8 Other abnormal and inconclusive findings on diagnostic imaging of breast (principal); Z78.0 Asymptomatic menopausal state; Z85.9 Personal history of malignant neoplasm, unspecified; Z80.3 Family history of malignant neoplasm of breast; Z79.3 Long term (current) use of hormonal contraceptives
CPT/HCPCS: 77065; 76642; G0279; 77061

== ENCOUNTER → 2020-12-13 | Outpatient (CLI) | payer MEDICARE ==
--- NOTE | 2020-12-13 20:29 | SFUN ---
SLEEP CENTER FOLLOW UP NOTE DATE OF SERVICE: 12/13/2020 The 70-year-old lady has been followed in Sleep Center for treatment of obstructive sleep apnea-hypopnea syndrome. Patient continued to use her CPAP equipment every night for the whole night. No problems with the machine getting her supplies in time. She is using a cleaning system for the machine. I checked her CPAP unit. Pressure is 11 cm of water. Usage is 29/30 nights more than 4 hours, average 8.4 hours per night, which is great compliance. Leak is only 4 L/minute. Apnea-hypopnea index is only 1.3 which is perfect. [place] Sleepiness Scale is 9. MEDICATIONS: Metformin 500 mg twice a day, atorvastatin 40 mg once a day, 3 mg once a day. PHYSICAL EXAMINATION: GENERAL: Patient in no distress. BP 131/80, HR 89, RR 15, height 5 feet 4 inches, weight 202.4. Patient lost about 3 pounds since previous visit. Body mass index 34.6. Temperature 97.2, oxygen saturation at room air 94%. Oropharynx extremely low position of soft palate, Mallampati 4. NECK: Supple, no JVD. Thyroid is not palpable. LUNGS: Clear to percussion and to auscultation. Good air exchange. No wheezing or rhonchi. HEART: S1, S2 regular. No murmurs, gallops, or rubs. ABDOMEN: Slightly obese. Soft and nontender. Bowel sounds are present. No organomegaly appreciated. EXTREMITIES: No clubbing or cyanosis. HEALTHCARE FACILITY ADMINISTRATOR: Awake, alert, and oriented X3. Cranial nerves 2 to 7 intact. There is no fasciculation or atrophy. noted. No focal deficits observed. IMPRESSION: 1. Obstructive sleep apnea-hypopnea syndrome in severe range by results of the sleep study. The patient demonstrated 100% compliance with treatment benefitting from treatment normal respiration on CPAP. 2. Obesity, patient lost about 3 pounds. Body mass index 34.6. 3. Status post left knee arthroscopic surgery for meniscus problems. 4. Diabetes mellitus. 5. Status post bilateral surgery for ganglion cyst. 6. Status post breast resection for benign tumor. 7. Status post tubal ligation. 8. Status post total hysterectomy. 9. Status post bladder suspension. 10.Status post surgical treatment for hiatal hernia. 11.Hyperlipidemia. 12.Acid reflux. 13.Status post surgical treatment for varicose veins of the legs. 14.Status post surgery for prevention of acid reflux. PLAN: 1. Presently, there is a possibility that is better to not use cleaning systems for the CPAP units according to another company home who makes CPAP units [employer]ics although patient has ResMed machine. We discussed that issue with her and her she will stop using cleaning system at the present time. 2. Patient will continue to use PAP equipment every night for the whole night. 3. Sleep hygiene with regular time in bed for at least 7-1/2 to 8 hours. 4. Precautions related to driving. No driving if feeling sleepiness. 5. I will maintain all necessary prescription for PAP supplies including mask, tube, filters. 6. Watching weight. 7. Follow-up visit in 6 months or earlier if patient has any problems. Thank you very much for allowing me to participate in management of your patient. Sincerely, Magan Ramos MD, PhD, FAASM Diplomat of [place] [employer] Specialties Sleep Medicine Board of [place] Board of Internal Medicine Director Of Strategic Programs of [facility] [place] MMODL / IJN: [id number] /
== END ==
LOC: SLEEP 13:54
PROVIDERS: ATTEND Internal Medicine
DX: G47.33 Obstructive sleep apnea (adult) (pediatric) (principal); E66.9 Obesity, unspecified; E11.9 Type 2 diabetes mellitus without complications; E78.5 Hyperlipidemia, unspecified; K21.9 Gastro-esophageal reflux disease without esophagitis; Z68.34 Body mass index [BMI] 34.0-34.9, adult; Z87.39 Personal history of other diseases of the musculoskeletal system and connective tissue; Z98.51 Tubal ligation status; Z90.710 Acquired absence of both cervix and uterus; Z98.890 Other specified postprocedural states; Z79.84 Long term (current) use of oral hypoglycemic drugs; Z88.8 Allergy status to other drugs, medicaments and biological substances

== ENCOUNTER → 2021-06-12 | Outpatient (CLI) | payer MEDICARE ==
--- NOTE | 2021-06-12 14:22 | SFUN ---
SLEEP CENTER FOLLOW UP NOTE DATE OF SERVICE: 06/12/2021 INTERVAL HISTORY: 70-year-old lady has been followed in Sleep Center for treatment of obstructive sleep apnea-hypopnea syndrome. Patient continues to use her CPAP equipment every night for the whole night. No snoring with the machine. Getting her supplies in time. [place] Sleepiness Scale today is 8 which is in normal range. I checked her CPAP unit. Pressure is 11 cm of water. Usage is 30/30 nights, 100% of nights for more than 4 hours, average 8.2 hours per night, which is great compliance. Leak is 10 L/minute which is normal. Apnea-hypopnea index is 0.4 which is perfect. MEDICATIONS: Metformin 500 mg 4 times a day, Jardiance 10 mg once a day, atorvastatin 40 mg once a day, Zantac 10 mg once a day, vitamin supplements. PHYSICAL EXAMINATION: GENERAL: Patient in no distress. Blood pressure 116/73, HR 83, RR 16, weight 199.4. Patient lost 3 pounds since previous visit. Height 5 feet, 4 inches, temperature 97.2, oxygen saturation at room air 93%. Oropharynx: Extremely low position of soft palate, Mallampati 4. NECK: Supple, no JVD. Thyroid is not palpable. LUNGS: Clear to percussion and to auscultation. Good air exchange. No wheezing or rhonchi. HEART: S1, S2 regular. No murmurs, gallops, or rubs. ABDOMEN: Slightly obese. Soft and nontender. Bowel sounds are present. No organomegaly appreciated. EXTREMITIES: No clubbing or cyanosis. SUPERVISOR GROVE: Awake, alert, and oriented X3. Cranial nerves 2 to 7 intact. There is no fasciculation or atrophy. noted. No focal deficits observed. IMPRESSION: 1. Obstructive sleep apnea-hypopnea syndrome in severe range. The patient demonstrated 100% compliance with treatment. Normal respiration on treatment with CPAP, benefitting from treatment. 2. Diabetes mellitus. 3. Mild obesity. 4. Status post left knee arthroscopic surgery for meniscus problems. 5. Status post bilateral surgery for ganglion cyst. 6. Status post breast reduction for benign tumor. 7. Status post tubal ligation. 8. Status post total hysterectomy. 9. Status post bladder suspension. 10.Status post surgical treatment for hiatal hernia. 11.Hyperlipidemia. 12.Acid reflux. 13.Status post surgical treatment for varicose veins of the legs. 14.Status post surgery for prevention of acid reflux. PLAN: 1. Patient will continue to use PAP equipment every night for the whole night. 2. Sleep hygiene with regular time in bed for at least 7-1/2 to 8 hours. 3. Precautions related to driving. No driving if feeling sleepiness. 4. I will maintain all necessary prescription for PAP supplies including mask, tube, filters. 5. Watching weight. 6. Follow-up visit in 6 months or earlier if patient has any problems. Thank you very much for allowing me to participate in the management of your patient. Sincerely, Magan Ramos MD, PhD, FAASM Diplomat of [place] [employer] Specialties Sleep Medicine Board of [place] Board of Internal Medicine Commercial Fishing Vessel Operator of [facility] [place] MMODL / DEVANTEN: [id number] /
== END ==
LOC: SLEEP 10:57
PROVIDERS: ATTEND Internal Medicine
DX: G47.33 Obstructive sleep apnea (adult) (pediatric) (principal); E11.9 Type 2 diabetes mellitus without complications; E66.9 Obesity, unspecified; Z99.89 Dependence on other enabling machines and devices; Z98.890 Other specified postprocedural states; E78.5 Hyperlipidemia, unspecified; K21.9 Gastro-esophageal reflux disease without esophagitis; Z98.51 Tubal ligation status; Z79.84 Long term (current) use of oral hypoglycemic drugs; Z90.711 Acquired absence of uterus with remaining cervical stump; Z88.8 Allergy status to other drugs, medicaments and biological substances

== ENCOUNTER → 2022-01-09 | Outpatient (CLI) | payer MEDICARE ==
--- NOTE | 2022-01-09 11:50 | P.PN ---
Subjective DATE: 01/09/2022 FOLLOW UP VISIT. Patient with obstructive sleep apnea hypopnea syndrome return to sleep center for follow-up visit. Information from previous visit have been reviewed. Patient is using PAP equipment every night for the whole night, getting PAP supplies in time. The patient does not have significant problems with the mask, PAP unit and humidification. [place] sleepiness scale is 7. I checked PAP unit. PAP unit pressure 11 cm H2O. Usage is 100 % for more then 4 hours, average 8 hours per night. Leak is 11 l/m, which is in acceptable range. Apnea Hypopnea Index is 1.6, which is normal. MEDICATIONS:1. Metformin 1000 mg twice a day 2. Atorvastatin 40 mg once a day 3. Jardiance 10 mg once a day 4. Ryhelsus During physical exam: GENERAL: A pleasant patient without any distress. VITAL SIGNS: BP 124/81, HR 75, RR 16 , weight 198.6, temperature 97.2, oxygen saturation at room air 94 % . HEENT: PERRLA, EOMI.low position of soft palate, Mallapati 4 . NECK: Supple. No JVD. LUNGS: Clear to percussion and to auscultation. Good air exchange. No wheezing or rhonchi. HEART: S1, S2 regular. ABDOMEN: Soft and nontender.[] EXTREMITIES: No clubbing or cyanosis. LOOM CLEANER: Awake, alert, and oriented x3. No focal deficit. Impressions: 1. Obstructive sleep apnea-hypopnea syndrome. Patient demonstrated great compliance with treatment, benefiting from treatment. 2. Mild obesity. 3. Diabetes mellitus. 4. Hyperlipidemia. 5. Acid reflux. 6. Status post surgical treatment for varicose veins of the legs. 7. Status post left knee arthroscopic surgery for meniscus problems. 8. Status post total hysterectomy. 9. Status post bladder suspension. 10. Status post surgical treatment for hiatal hernia. 11. Status post surgery for prevention of acid reflux. 12. Status post tubal ligation. Plan: 1. Continue using PAP equipment every night for the whole night. 2. To change air filter at least 1-2 times per month. 3. PAP unit should stay lower then position of the head. 4. Advised patient to remove all remaining water from humidifier canister daily and make it dry after each usage. Refill canister with fresh distilled water before each usage. 5. Sleep hygiene with regular time in bed for at least 8 hours. 6. Precautions related to driving. No driving if feel any sleepiness. 7. I will maintain prescription for PAP supplies including mask, tube, filters. 8. Follow up visit in 6 months or earlier if patient has any problems. 9. Watching weight. Thank you very much for allowing me to participate in the management of your patient. Magan Ramos MD, PhD, FAASM. Diplomat of [place] Board of Sleep Medicine, Sleep Medicine Board by [place] Board of Internal Medicine Campaign Coordinator of [facility] [place]
== END ==
LOC: SLEEP 11:14
PROVIDERS: ATTEND Internal Medicine
DX: G47.33 Obstructive sleep apnea (adult) (pediatric) (principal); Z99.89 Dependence on other enabling machines and devices; E11.9 Type 2 diabetes mellitus without complications; E78.5 Hyperlipidemia, unspecified; K21.9 Gastro-esophageal reflux disease without esophagitis; Z98.890 Other specified postprocedural states; Z79.84 Long term (current) use of oral hypoglycemic drugs; Z98.51 Tubal ligation status
CPT/HCPCS: 99212

== ENCOUNTER → 2022-04-09 | Outpatient (CLI) | payer MEDICARE, OTHER ==
--- NOTE | 2022-04-10 09:00 | MM ---
Reason for Exam: Screening (asymptomatic). Last screening mammogram was performed 12 month(s) ago. Patient History: Menarche at age 14. First Full-Term at age 30. Left ovary removed at age 40. Right ovary removed at age 40. Hysterectomy at age 40. Postmenopausal. Patient used Hormonal Contraceptives for 1 year. 1987, Benign Excisional Biopsy on the right side. 04/23/2020, MG discontinued stereo core RT on the right side. Maternal cousin had breast cancer, age 50. Maternal aunt had breast cancer, age 40. Sister had breast cancer, age 60. Sister tested for BRCA1 outcome was negative. Sister tested for BRCA2 outcome was negative. Risk Values: Amanda 5 year model risk: 4.0%. NCI Lifetime model risk: 11.9%. Prior Study Comparison: 03/28/2020 Bilateral Screening Mammogram, [facility]. 11/29/2020 Right Diagnostic Mammogram, [facility]. 04/08/2021 Bilateral Screening Mammogram, [facility]. Tissue Density: The breast tissue is heterogeneously dense. This may lower the sensitivity of mammography. Findings: Analyzed By CAD. There is no suspicious group of microcalcifications or new suspicious mass in either breast. Benign round calcifications within both breasts. Overall Assessment: Benign, BI-RAD 2 Management: Screening Mammogram of both breasts in 1 year. A clinical breast exam by your physician is recommended on an annual basis and results should be correlated with mammographic findings. Electronically signed and approved by: Carlos Alberto Nino D.O.
== END | disposition home or self-care (01) ==
LOC: RADMAMWWP 10:12
PROVIDERS: ATTEND Family Medicine
DX: Z12.31 Encounter for screening mammogram for malignant neoplasm of breast (principal); Z78.0 Asymptomatic menopausal state; Z80.3 Family history of malignant neoplasm of breast
CPT/HCPCS: 77063; 77067

== ENCOUNTER → 2022-07-24 | Outpatient (CLI) | payer MEDICARE ==
--- NOTE | 2022-07-24 12:27 | P.PN ---
Subjective DATE: 07/24/2022 FOLLOW UP VISIT. Patient with obstructive sleep apnea hypopnea syndrome return to sleep center for follow-up visit. Information from previous visit have been reviewed. Patient is using PAP equipment every night for the whole night, getting PAP supplies in time. The patient does not have significant problems with the mask, PAP unit and humidification. [place] sleepiness scale is 8, which is normal. I checked information from PAP unit and explained it to the patient in details. PAP unit pressure 11 cm H2O. Usage is 100 % for more then 4 hours, average 7.6 hours per night. Leak is normal 7 l/m. Apnea Hypopnea Index is 1.1, which is normal. MEDICATIONS:1. Metformin 1000 mg twice a day 2. Atorvastatin 40 mg once a day 3. Rubelsus 14 mg once a day 4. Jardiance 10 mg once a day During physical exam: GENERAL: A pleasant patient without any distress. VITAL SIGNS: BP 116/76, HR 95, RR 12 , weight 199, temperature 97.5, oxygen saturation at room air 93 % . HEENT: PERRLA, EOMI.low position of soft palate, Mallapati 4 . NECK: Supple. No JVD. LUNGS: Clear to percussion and to auscultation. Good air exchange. No wheezing or rhonchi. HEART: S1, S2 regular. ABDOMEN: Soft and nontender.[] EXTREMITIES: No clubbing or cyanosis. BITE BLOCK MAKER: Awake, alert, and oriented x3. No focal deficit. Impressions: 1. Obstructive sleep apnea-hypopnea syndrome. Patient demonstrated great compliance with treatment, benefiting from treatment. 2. Mild obesity body mass index 35.2, no significant changes of weight comparing to previous visit. 3. Diabetes mellitus. 4. Acid reflux. 5. Hyperlipidemia. 6. Status post total hysterectomy. 7. Status post surgery for prevention of acid reflux. 8. Status post bladder suspension. 9. Status post left knee arthroscopic surgery for meniscus problems. 10. Status post surgical treatment for varicose veins of the legs. 11. Status post tubal ligation. Plan: 1. Continue using PAP equipment every night for the whole night. 2. To change air filter at least 1-2 times per month. 3. PAP unit should stay lower then position of the head. 4. Advised patient to remove all remaining water from humidifier canister daily and make it dry after each usage. Refill canister with fresh distilled water before each usage. 5. Sleep hygiene with regular time in bed for at least 8 hours. 6. Precautions related to driving. No driving if feel any sleepiness. 7. I will maintain prescription for PAP supplies including mask, tube, filters. 8. Watching and losing weight. 9. Follow up visit in 6 months or earlier if patient has any problems. Thank you very much for allowing me to participate in the management of your patient. Magan aRmos MD, PhD, FAASM. Diplomat of [place] Board of Sleep Medicine, Sleep Medicine Board by [place] Board of Internal Medicine Catering And Events Manager of [facility] [place]
== END ==
LOC: SLEEP 11:02
PROVIDERS: ATTEND Internal Medicine
DX: G47.33 Obstructive sleep apnea (adult) (pediatric) (principal); E11.9 Type 2 diabetes mellitus without complications; E66.9 Obesity, unspecified; E78.5 Hyperlipidemia, unspecified; K21.9 Gastro-esophageal reflux disease without esophagitis; Z68.35 Body mass index [BMI] 35.0-35.9, adult; Z79.84 Long term (current) use of oral hypoglycemic drugs; Z79.899 Other long term (current) drug therapy; Z90.710 Acquired absence of both cervix and uterus; Z99.89 Dependence on other enabling machines and devices; Z98.890 Other specified postprocedural states; Z88.8 Allergy status to other drugs, medicaments and biological substances
CPT/HCPCS: 99212

== ENCOUNTER → 2023-01-29 | Outpatient (CLI) | payer MEDICARE, OTHER ==
--- NOTE | 2023-01-29 12:35 | P.PN ---
Subjective DATE: 01/29/2023 FOLLOW UP VISIT. Patient with obstructive sleep apnea hypopnea syndrome return to sleep center for follow-up visit. Information from previous visit have been reviewed. Patient is using PAP equipment every night for the whole night, getting PAP supplies in time. The patient does not have significant problems with the mask, PAP unit and humidification. [place] sleepiness scale is 9, which is borderline. I checked information from PAP unit. PAP unit pressure 11 cm H2O. Usage is 100 % for more then 4 hours, average 8.8 hours per night. Leak is 7 l/m, which is in acceptable range. Apnea Hypopnea Index is 2.5, which is normal. MEDICATIONS:1. Metformin 1000 mg twice a day 2. Jardiance 10 mg once a day 3. Rubelsus 14 mg once a day 4. Atorvastatin 40 mg once a day During physical exam: GENERAL: A pleasant patient without any distress. VITAL SIGNS: BP 124/65, HR 81, RR 16, weight 194.2, temperature 97.9, oxygen saturation at room air 94 % . HEENT: PERRLA, EOMI.low position of soft palate, Mallapati 4 . NECK: Supple. No JVD. LUNGS: Clear to percussion and to auscultation. Good air exchange. No wheezing or rhonchi. HEART: S1, S2 regular. ABDOMEN: Soft and nontender.[] EXTREMITIES: No clubbing or cyanosis. SORTER PRICER: Awake, alert, and oriented x3. No focal deficit. Impressions: 1. Obstructive sleep apnea-hypopnea syndrome. Patient demonstrated great compliance with treatment, benefiting from treatment. 2. Mild obesity, patient lost 5 pounds since previous visit. 3. Diabetes mellitus. 4. Hyperlipidemia. 5. Acid reflux. 6. Status post total hysterectomy. 7. Status post bladder suspension. 8. Status post surgery for preventing acid reflux. 9. Status post left knee surgery for meniscus problems. 10. Status post surgical treatment for varicose veins of the legs. Plan: 1. Continue using PAP equipment every night for the whole night. 2. To change air filter at least 1-2 times per month. 3. PAP unit should stay lower then position of the head. 4. Advised patient to remove all remaining water from humidifier canister daily and make it dry after each usage. Refill canister with fresh distilled water before each usage. 5. Sleep hygiene with regular time in bed for at least 8 hours. 6. Precautions related to driving. No driving if feel any sleepiness. 7. I will maintain prescription for PAP supplies including mask, tube, filters. 8. Follow up visit in 6 months or earlier if patient has any problems. 9. Watching and continue losing weight. Thank you very much for allowing me to participate in the management of your patient. Magan Ramos MD, PhD, FAASM. Diplomat of [place] [employer], Sleep Medicine Board by [place] [employer] Supervisor of [facility] [place]
== END ==
LOC: 3 N SLEEP 11:07
PROVIDERS: ATTEND Internal Medicine
DX: G47.33 Obstructive sleep apnea (adult) (pediatric) (principal); E11.9 Type 2 diabetes mellitus without complications; E66.9 Obesity, unspecified; E78.5 Hyperlipidemia, unspecified; K21.9 Gastro-esophageal reflux disease without esophagitis; Z79.84 Long term (current) use of oral hypoglycemic drugs; Z79.899 Other long term (current) drug therapy; Z90.710 Acquired absence of both cervix and uterus; Z98.890 Other specified postprocedural states; Z96.652 Presence of left artificial knee joint; Z99.89 Dependence on other enabling machines and devices; Z88.8 Allergy status to other drugs, medicaments and biological substances
CPT/HCPCS: 99212

== ENCOUNTER → 2023-04-10 | Outpatient (CLI) | payer MEDICARE, OTHER ==
--- NOTE | 2023-04-10 13:12 | MM ---
Reason for Exam: Screening (asymptomatic). Last screening mammogram was performed 12 month(s) ago. Patient History: Menarche at age 14. First Full-Term at age 30. Left ovary removed at age 40. Right ovary removed at age 40. Hysterectomy at age 40. Postmenopausal. Patient has history of breast feeding. Patient used Hormonal Contraceptives for 1 year. 1987, Benign Excisional Biopsy on the right side. 04/23/2020, MG discontinued stereo core RT on the right side. Maternal cousin had breast cancer, age 50. Maternal aunt had breast cancer, age 40. Paternal aunt had breast cancer at or over age 50. Sister had breast cancer, age 60. Sister tested for BRCA1 outcome was negative. Sister tested for BRCA2 outcome was negative. Risk Values: Amanda 5 year model risk: 4.0%. NCI Lifetime model risk: 11.4%. Prior Study Comparison: 02/04/2018 Bilateral Screening Mammogram, [facility]. 02/08/2019 Bilateral Screening Mammogram, [facility]. 03/28/2020 Bilateral Screening Mammogram, [facility]. 11/29/2020 Right Diagnostic Mammogram, [facility]. 04/08/2021 Bilateral Screening Mammogram, [facility]. 04/09/2022 Bilateral MG 3D screening mammo w/cad, [facility]. Tissue Density: There are scattered fibroglandular densities. Findings: Analyzed By CAD. There is no suspicious group of microcalcifications or new suspicious mass. Benign-appearing calcifications bilaterally. Overall Assessment: Benign, BI-RAD 2 Management: Screening Mammogram of both breasts in [address] [facility] will attempt to contact patient to return for supplemental views and ultrasound if indicated. Patient should continue monthly self-breast exams. A clinical breast exam by your physician is recommended on an annual basis. This exam should not preclude additional follow-up of suspicious palpable abnormalities. Note on Amanda scores and lifetime risk: 1. A Amanda score greater than 3% is considered moderate risk. If this is the case, consider specialist referral to assess eligibility for a risk reducing agent. 2. If overall lifetime risk for the development of breast cancer is 20% or higher, the patient may qualify for future screening with alternating mammogram and breast MRI. Electronically signed and approved by: Vinod Olmstead DO
== END | disposition home or self-care (01) ==
LOC: RADMAMWWP 10:13
PROVIDERS: ATTEND Family Medicine
DX: Z12.31 Encounter for screening mammogram for malignant neoplasm of breast (principal); Z78.0 Asymptomatic menopausal state; Z80.3 Family history of malignant neoplasm of breast
CPT/HCPCS: 77063; 77067

== ENCOUNTER → 2023-08-12 | Outpatient (CLI) | payer MEDICARE, OTHER ==
--- NOTE | 2023-08-12 11:17 | P.PN ---
Subjective DATE: 08/12/2023 FOLLOW UP VISIT. Patient with obstructive sleep apnea hypopnea syndrome return to sleep center for follow-up visit. Information from previous visit have been reviewed. Patient is using PAP equipment every night for the whole night, getting PAP supplies in time. CPAP unit sometimes is noisy. [place] sleepiness scale is 8. I checked information from PAP unit. Motor life expectancy was exceeded. PAP unit pressure 11 cm H2O. Usage is 100% for more then 4 hours, average 7.7 hours per night. Leak is 10 l/m, which is in acceptable range. Apnea Hypopnea Index is 2.3, which is normal. MEDICATIONS:1. Metformin 1000 mg twice a day 2. Atorvastatin 40 mg once a day 3. Rybelsus 14 mg once a day 4. Jardiance 10 mg once a day During physical exam: GENERAL: A pleasant patient without any distress. VITAL SIGNS: Please see below. HEENT: PERRLA, EOMI.low position of soft palate, Mallapati 4 . NECK: Supple. No JVD. LUNGS: Clear to percussion and to auscultation. Good air exchange. No wheezing or rhonchi. HEART: S1, S2 regular. ABDOMEN: Soft and nontender.[] EXTREMITIES: No clubbing or cyanosis. RESEARCH/PROGRAM DIRECTOR: Awake, alert, and oriented x3. No focal deficit. Impressions: 1. Obstructive sleep apnea-hypopnea syndrome. Patient demonstrated great compliance with treatment, benefiting from treatment. CPAP unit is noisy, motor life expectancy was exceeded. 2. Diabetes mellitus. 3. Hyperlipidemia. 4. Acid reflux. 5. Status post bladder suspension. 6. Status post total hysterectomy. 7. Status post left knee surgery for meniscus problems. 8. Status post surgery for preventing acid reflux. 9. Status post surgical treatment for varicose veins of the legs. 10. Mild obesity, BMI 35.4. Plan: 1. Continue using PAP equipment every night for the whole night. Prescription to replace CPAP unit. 2. To change air filter at least 1-2 times per month. 3. PAP unit should stay lower then position of the head. 4. Advised patient to remove all remaining water from humidifier canister daily and make it dry after each usage. Refill canister with fresh distilled water before each usage. 5. Sleep hygiene with regular time in bed for at least 8 hours. 6. Precautions related to driving. No driving if feel any sleepiness. 7. I will maintain prescription for PAP supplies including mask, tube, filters. 8. Watching weight. 9. Follow up visit in 1-3 months after patient will get new CPAP unit. Thank you very much for allowing me to participate in the management of your patient. Magan Ramos MD, PhD, FAASM. Diplomat of [place] [employer], Sleep Medicine Board by [place] [employer] of [facility] [place] Objective - Vital Signs Vital signs: Vital Signs Temp 98.3 F 08/12/23 10:43 Pulse 100 08/12/23 10:43 Resp 16 08/12/23 10:43 BP 105/69 08/12/23 10:43 Pulse Ox 93 L 08/12/23 10:43 FiO2
[2023-08-12 11:24] VITALS: BP 105/69; PULSE 100; RESP 16; TEMP 98.3
== END ==
LOC: 3 N SLEEP 10:28
PROVIDERS: ATTEND Internal Medicine
DX: G47.33 Obstructive sleep apnea (adult) (pediatric) (principal); E11.9 Type 2 diabetes mellitus without complications; E78.5 Hyperlipidemia, unspecified; K21.9 Gastro-esophageal reflux disease without esophagitis; E66.9 Obesity, unspecified; Z98.890 Other specified postprocedural states; Z90.710 Acquired absence of both cervix and uterus; Z68.35 Body mass index [BMI] 35.0-35.9, adult; Z79.84 Long term (current) use of oral hypoglycemic drugs; Z99.89 Dependence on other enabling machines and devices; Z79.85 Long-term (current) use of injectable non-insulin antidiabetic drugs; Z79.899 Other long term (current) drug therapy; Z88.8 Allergy status to other drugs, medicaments and biological substances
CPT/HCPCS: 99212

== ENCOUNTER 2024-06-10 09:45 | Day surgery (SDC) | payer MEDICARE, OTHER ==
[2024-06-09 10:35] VITALS: BMI 31.7
[~2024-06-10 09:45] MED LIST changes: -DEXAMETHASONE SOD PHOSPHATE 10 MG/ML 1 ML VIAL IV ONE; -HYDROmorphone 0.5 MG/0.5 ML SYRINGE IVP PRN; -MIDAZOLAM 2 MG/2 ML VIAL IV PRN; -ONDANSETRON 4 MG/2 ML VIAL IVP ONE
[2024-06-10 10:11] VITALS: TEMP 97.8
[2024-06-10 10:20] LABS: Glucose,Whole Blood 170 mg/dL (70-110)
[2024-06-10] MEDS: LACTATED RINGERS 1,000 ML IV ONE (10:21)
[2024-06-10] MEDS ORDERED: LIDOCAINE 1% INJ 10MG/ML (20 ML MDV) ONE (10:43)
[2024-06-10] MEDS ORDERED: PROPOFOL 10 MG/ML 20 ML VIAL IV ONE (10:43)
--- NOTE | 2024-06-10 11:03 | P.PCN ---
Date of Procedure: 06/10/24 Procedure(s) Performed: BRIEF HISTORY: Patient is a 73-year-old, pleasant, white female scheduled for an upper endoscopy as a part evaluation of longstanding history of GERD. Her brother was diagnosed with esophageal cancer in his 60s.. PROCEDURE PERFORMED: Esophagogastroduodenoscopy biopsy. PREOPERATIVE DIAGNOSIS: Longstanding history of GERD and family history of esophageal cancer. IV sedation per anesthesia. PROCEDURE: After informed consent was obtained, the patient was brought into the endoscopy unit. IV sedation was administered by Anesthesia under continuous monitoring. Initially the Olympus GIF-140 video endoscope was inserted into the mouth. Esophagus intubated without any difficulty. It was gradually advanced into the stomach and duodenum and carefully examined. The bulb and the second part of the duodenum appeared normal. The scope at this time was withdrawn to the stomach, adequately insufflated with air, and upon careful examination, mucosa of the antrum and mild gastritis and biopsies were done from this area. Mucosa of the, body, cardia and the fundus appeared normal. There was evidence of previous Janki fundoplication noted. The scope was then withdrawn into the esophagus. The GE junction was located at 39 cm from the incisors. There was 3 mm tongue of Falcon's appearing mucosa proximal to the GE junction that was biopsied. The esophagus appeared normal. There were no erosions or ulcerations seen and the patient tolerated the procedure well. 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 2. Mild antral gastritis. RECOMMENDATIONS: The findings of this examination were discussed with the patient as well as her family. She was advised to follow-up with the biopsy results. If the biopsy confirms the presence of Falcon's esophagus she can have repeat upper endoscopy in 3 years.
[2024-06-10 11:28] VITALS: BP 146/76; PULSE 71; RESP 18
== END 2024-06-10 11:36 | disposition home or self-care (01) ==
LOC: ORWHC2ENDO 09:45
PROVIDERS: ATTEND Internal Medicine Gastroenterology
DX: K22.70 Barrett's esophagus without dysplasia (principal); K21.9 Gastro-esophageal reflux disease without esophagitis; K29.50 Unspecified chronic gastritis without bleeding; E11.9 Type 2 diabetes mellitus without complications; E78.5 Hyperlipidemia, unspecified; G47.33 Obstructive sleep apnea (adult) (pediatric); Z79.84 Long term (current) use of oral hypoglycemic drugs; Z79.899 Other long term (current) drug therapy; Z88.8 Allergy status to other drugs, medicaments and biological substances; Z80.0 Family history of malignant neoplasm of digestive organs
CPT/HCPCS: 43239; J2003; J2704; 88305